=== PATIENT | male | born 1975 | race Caucasian/White ===

== ENCOUNTER 2025-10-06 12:15 | Emergency (ER) | payer MEDICAID ==
[~2025-10-06] VITALS: Ht 172.7 cm; Wt 70.0 kg
[2025-10-06 12:24] VITALS: O2SAT 99
[2025-10-06] MEDS: FLUORESCEIN SODIUM 1MG/STRIP EACHEYE ONE (12:46)
[2025-10-06] MEDS: TETRACAINE 0.5% OPHTH DROPS 4ML BOTHEYE ONE (12:46)
[2025-10-06 14:14] VITALS: BP 120/71; PULSE 65; RESP 18; TEMP 36.7; O2SAT 99
== END 2025-10-06 15:01 | disposition home or self-care (01) ==
LOC: ER 12:44
DX: H11.31 Conjunctival hemorrhage, right eye (principal)
CPT/HCPCS: 99283